=== PATIENT | female | born 1995 | race Caucasian/White ===

== ENCOUNTER 2016-08-18 16:50 | Emergency (ER) | payer OTHER, SELFPAY ==
[2016-08-18] MEDS ORDERED: Phenazopyridine HCl 97.5 MG TABLET ONE (17:16)
[2016-08-18 17:23] LABS: Clarity Clear (Clear)
[2016-08-18 17:25] LABS: Bilirubin Negative (Negative); Blood, Urine Trace (Negative); Glucose, Urine (Dipstick) Negative (Negative); Leukocyte Small (Negative); Nitrite Negative (Negative); Pregnancy Test - Urine (BHCG) Negative (Negative); Protein, Urine (Dipstick) 30 mg/dL (Neg-Trace); Specific Gravity, Urine 1.028 (1.002-1.036); Urobilinogen 0.2 mg/dL (0.2-1.0)
[2016-08-18 17:26] LABS: Pregu Control Background? CLEAR/WHITE (CLR/WHITE); Pregu Control Bar Appear? YES (CONTROL BAR); Specific Gravity 1.028 (1.002-1.036)
[2016-08-18 17:33] LABS: Bacteria/HPF Rare-Few HPF (None Seen); Hyaline Casts/LPF NONE SEEN LPF (0-3 Hyaline); RBC/HPF 0-3 HPF (0-3); WBC/HPF 21-50 HPF (0-3)
[2016-08-18] MEDS ORDERED: Ciprofloxacin 500 MG TAB ONE (17:39)
== END 2016-08-18 17:45 | disposition home or self-care (01) ==
LOC: MADERS 16:50
DX: N39.0 Urinary tract infection, site not specified (principal)
CPT/HCPCS: 81003; 81015; 81025; 99283

== ENCOUNTER 2016-11-03 11:58 | Emergency (ER) | payer OTHER ==
[2016-11-03] MEDS ORDERED: traMADol HCl 50 MG TAB ONE (12:31)
[2016-11-03] MEDS ORDERED: Sulfameth/Trimethoprim DS 800-160mg TAB ONE (12:31)
== END 2016-11-03 12:37 | disposition home or self-care (01) ==
LOC: MADERS 11:58
DX: L03.111 Cellulitis of right axilla (principal); L02.411 Cutaneous abscess of right axilla

== ENCOUNTER 2018-05-19 19:33 | Emergency (ER) | payer OTHER, SELFPAY | END 2018-05-19 21:01 | disposition home or self-care (01) | LOC: MADERS 19:33 | DX: J30.9 Allergic rhinitis, unspecified (principal) | CPT/HCPCS: 99283 ==

== ENCOUNTER → 2018-09-22 | Emergency (ER) | payer SELFPAY ==
[2018-09-22 18:25] LABS: Bilirubin Negative (Negative); Blood, Urine Negative (Negative); Clarity Clear (Clear); Glucose, Urine (Dipstick) Negative (Negative); Leukocyte Trace (Negative); Nitrite Negative (Negative); Protein, Urine (Dipstick) Negative (Neg-Trace); RBC/HPF 0-3 HPF (0-3)
[2018-09-22 18:26] LABS: Bacteria/HPF Rare-Few HPF (None Seen)
[2018-09-22 18:27] LABS: Pregu Control Background? CLEAR/WHITE (CLR/WHITE); Pregu Control Bar Appear? YES (CONTROL BAR)
[2018-09-22 18:28] LABS: Pregnancy Test - Urine (BHCG) Negative (Negative)
== END ==
LOC: MADERS 17:55
DX: N39.0 Urinary tract infection, site not specified (principal)
CPT/HCPCS: 81003; 81015; 81025; 87086; 99284

== ENCOUNTER 2019-01-10 08:07 | Emergency (ER) | payer SELFPAY ==
[2019-01-10 08:56] LABS: Clarity Hazy (Clear)
[2019-01-10 08:57] LABS: Bilirubin Negative (Negative); Blood, Urine Negative (Negative); Glucose, Urine (Dipstick) Negative (Negative); Leukocyte Negative (Negative); Nitrite Negative (Negative); Protein, Urine (Dipstick) Negative (Neg-Trace); RBC/HPF 0-3 HPF (0-3); Urobilinogen 0.2 mg/dL (Less than 2)
[2019-01-10 08:58] LABS: Bacteria/HPF Rare-Few HPF (None Seen)
== END 2019-01-10 09:29 | disposition home or self-care (01) ==
LOC: MADERS 08:07
DX: R30.0 Dysuria (principal)
CPT/HCPCS: 81001; 99283

== ENCOUNTER 2019-08-15 20:14 | Emergency (ER) | payer MEDICAID, SELFPAY ==
[2019-08-15] MEDS ORDERED: Sodium Chloride 0.9% 1,000 ML ONE (21:15)
[2019-08-15 21:20] LABS: Anion Gap 17 mmol/L (10-20); BUN (Urea Nitrogen) 8 mg/dL (7.0-18.7); Calc. Creatinine Clearance 0 mL/min (70-130); Calcium 9.1 mg/dL (7.8-10.44); Carbon Dioxide 20 mmol/L (22-29); Chloride 106 mmol/L (98-107); Estimated GFR-MDRD Greater than 90; Glucose 107 mg/dL (70-105); Potassium 3.8 mmol/L (3.5-5.1); Sodium 139 mmol/L (136-145)
[2019-08-15 21:22] LABS: #Basophils 0.1 thou/uL (0.0-0.2); #Eosinphils 0.2 thou/uL (0.0-0.7); #Lymphocytes 2.5 thou/uL (1.20-3.40); #Monocytes 0.5 thou/uL (0.11-0.59); #Neutrophils 5.4 thou/uL (1.40-6.50); %Basophils 0.9 % (0.0-1.0); %Monocytes 6.2 % (0.0-10.0); %Neutrophils 61.9 % (42.0-75.0); Hemoglobin 11.9 g/dL (12.0-16.0); Mean Corpuscular HGB CONC 32.3 g/dL (32.0-36.0); Mean Corpuscular Hemoglobin 27.2 pg (27.0-31.0); Mean Corpuscular Volume 84.4 fL (78.0-98.0); Mean Platelet Volume 7.9 fL (7.4-10.4); Platelet Count 292 thou/uL (130-400); RBC Distribution Width 12.9 % (11.5-14.5); Red Blood Cell (RBC) Count 4.39 mill/uL (4.20-5.40); White Blood Cell (WBC) Count 8.8 thou/uL (4.8-10.8)
== END 2019-08-15 23:23 | disposition short-term general hospital (02) ==
LOC: MADERS 20:14
DX: O20.9 Hemorrhage in early pregnancy, unspecified (principal); Z3A.08 8 weeks gestation of pregnancy
CPT/HCPCS: 80048; 84702; 85025; 86900; 86901; 87480; 87491; 87510; 87591; 87660; 96360; 96361; J7050